=== PATIENT | female | born 1990 | race Caucasian/White ===

== ENCOUNTER 2017-09-14 15:35 | Emergency (ER) | payer OTHER ==
[~2017-09-14] VITALS: Ht 177.8 cm; Wt 69.5 kg
[2017-09-14 15:39] VITALS: TEMP 36.8; Ht 177.8 cm; Wt 69.5 kg
[2017-09-14] MEDS ORDERED: SODIUM CHLORIDE 0.9% 1000ML 1,000 ML IV STA (16:22)
[2017-09-14] MEDS ORDERED: ONDANSETRON INJ 2 MG/ML 2 ML VIAL IV STA (16:22)
[2017-09-14] MEDS ORDERED: GI COCKTAIL PO STA (16:22)
[2017-09-14] MEDS ORDERED: FAMOTIDINE 20MG/5ML IV PUSH IV STA (16:22)
[2017-09-14] MEDS ORDERED: ALUMINUM/MAGNESIUM SUSP 30 ML UDC ONE (16:54)
[2017-09-14] MEDS ORDERED: LIDOCAINE HCL 2% VISC SOLN 20 ML UDC ONE (16:54)
[2017-09-14 16:57] LABS: BASO % 0.2 %; BASO ABS # 0.01 K/uL (0-0.2); EOS % 3.6 %; EOS ABS # 0.22 K/uL (0-0.5); HEMATOCRIT 39.4 % (37-47); HEMOGLOBIN 13.4 g/dL (12.0-16.0); IG# 0.01 K/uL (0.00-0.02); LYMPH ABS # 1.54 K/uL (1.2-3.4); MEAN CELL VOLUME 85.5 fL (80-100); MEAN CORPUSCULAR HEMOGLOBIN 29.1 pg (25-34); MEAN PLATELET VOLUME 9.4 fL (7.4-10.4); MONO % 5.7 %; MONO ABS # 0.35 K/uL (0.11-0.59); NEUT % 65.3 %; NEUT ABS # 4.03 K/uL (1.4-6.5); PLATELET COUNT 236 K/uL (130-400); RED CELL DISTRIBUTION WIDTH CV 12.6 % (11.5-14.5); RED CELL DISTRIBUTION WIDTH SD 39.3 fL (36.4-46.3); WHITE BLOOD COUNT 6.16 K/uL (4.8-10.8)
[2017-09-14 17:19] LABS: ALBUMIN 4.2 gm/dl (3.4-5.0); ALKALINE PHOSPHATASE 61 U/L (45-117); ALT/SGPT 20 U/L (12-78); AST/SGOT 16 U/L (15-37); BLOOD UREA NITROGEN 9 mg/dl (7-18); CALCIUM 9.1 mg/dl (8.5-10.1); CARBON DIOXIDE 30 mmol/L (21-32); CREATININE 0.72 mg/dl (0.60-1.20); GLUCOSE 74 mg/dl (70-99); LIPASE 199 U/L (73-393); POTASSIUM 3.5 mmol/L (3.5-5.1); SODIUM 140 mmol/L (136-145)
[2017-09-14] MEDS ORDERED: MoRPHine SULFATE 4 MG/ML 1 ML CARP\\VIAL IV STA (18:17)
--- NOTE | 2017-09-14 18:34 | DIAGNOSTIC IMAGING REPORT ---
ABDOMEN 2VIEW W/PA CHEST RTN HISTORY: 27 years-old Female abd pain acute generalized abdominal pain and acute atypical chest pain COMPARISON: None available TECHNIQUE: PA view of the chest with erect and supine views of the abdomen FINDINGS: Cardiomediastinal and hilar silhouettes are within normal limits. There is no pneumothorax, pleural effusion, focal airspace consolidation or overt pulmonary edema. Bones of the chest appear grossly intact. No pneumatosis or pneumoperitoneum. Mild to moderate volume of formed stool about the right hemicolon. Cholecystectomy clips are noted. No urolith. Bowel gas pattern is nonobstructive. No fracture. IMPRESSION: Unremarkable acute abdominal series radiographs. The above report was generated using voice recognition software. It may contain grammatical, syntax or spelling errors. Electronically signed by: Ky Zamorano M.D. 09/14/2017 6:32 PM Dictated Date/Time: 09/14/2017 6:30 PM
--- NOTE | 2017-09-14 19:05 | EMERGENCY ROOM VISIT NOTE ---
History Report prepared by Scribe: Makenzie Melgar Under the Supervision of: Dr. Parker Neal D.O. First contact with patient: 15:42 Chief Complaint: ABDOMINAL PAIN Stated Complaint: BURNING IN STOMACH - CHEST BURNING - NAUSEA History of Present Illness The patient is a 27 year old female who presents to the Emergency Room with complaints of persistent abdominal pain for the past 2 weeks. She rates her discomfort as an 8/10 in severity and describes it as feeling like a "burning" pain. The pain does radiate up into her chest and shoulders. She has tried taking Antacids with no relief. She states she seems to experience the pain when she is hungry, but eating worsens the pain. She has been nauseous but has not vomited. She has experienced diarrhea. She has previously undergone a cholecystectomy but still has her appendix. Her LMP was 2 weeks ago and normal. Patient denies diabetes, hypertension, hyperlipidemia, CAD, history of sudden at a young age, and smoking. Patient denies swelling of calves, recent trips, history of immobilization or recent surgery, prior history of DVT, hemoptysis, history of malignancy, history of smoking, or control/ estrogen use. Pt denies headache, change in vision, fevers, chest pain, shortness of breath, vomiting, pain with urination, and melena. 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 A total of 10 systems reviewed and were otherwise negative. Past Medical & Surgical Surgical Problems: (1) History of cholecystectomy Social History Smoking Status: Never Smoker Alcohol Use: occasionally Drug Use: none Marital Status: Housing Status: lives with family Occupation Status: employed Current/Historical Medications Scheduled Famotidine (Pepcid), 20 MG PO DAILY Allergies Coded Allergies: No Known Allergies (Unverified , 09/14/17) Physical Exam Vital Signs Date Time Temp Pulse Resp B/P (MAP) Pulse Ox O2 Delivery O2 Flow Rate FiO2 09/14/17 19:33 62 18 118/72 99 09/14/17 18:44 59 16 116/74 100 Room Air 09/14/17 15:39 36.8 82 20 140/87 99 Room Air Physical Exam GENERAL: Sitting up in bed, alert, well appearing, well nourished, no distress, non-toxic EYE EXAM: normal conjunctiva. OROPHARYNX: no exudate, no erythema, lips, buccal mucosa, and tongue normal and mucous membranes are moist NECK: supple, no nuchal rigidity, no adenopathy, non-tender LUNGS: Clear to auscultation. Normal chest wall mechanics HEART: no murmurs, S1 normal and S2 normal ABDOMEN: abdomen soft, minimal tenderness in the epigastric region, normo- active bowel sounds, no masses, no rebound or guarding. BACK: Back is symmetrical on inspection and there is no deformity, no midline tenderness, no CVA tenderness. SKIN: no rashes and no bruising UPPER EXTREMITIES: upper extremities are grossly normal. LOWER EXTREMITIES: No pitting edema. NEURO EXAM: Normal sensorium, cranial nerves II-XII grossly intact, normal speech, no gross weakness of arms, no gross weakness of legs. Gross sensation intact. Medical Decision & Procedures ER Provider Diagnostic Interpretation: Radiology results as stated below per my review and the radiologist's interpretation: ABDOMEN 2VIEW W/PA CHEST RTN HISTORY: 27 years-old Female abd pain acute generalized abdominal pain and acute atypical chest pain COMPARISON: None available TECHNIQUE: PA view of the chest with erect and supine views of the abdomen FINDINGS: Cardiomediastinal and hilar silhouettes are within normal limits. There is no pneumothorax, pleural effusion, focal airspace consolidation or overt pulmonary edema. Bones of the chest appear grossly intact. No pneumatosis or pneumoperitoneum. Mild to moderate volume of formed stool about the right hemicolon. Cholecystectomy clips are noted. No urolith. Bowel gas pattern is nonobstructive. No fracture. IMPRESSION: Unremarkable acute abdominal series radiographs. The above report was generated using voice recognition software. It may contain grammatical, syntax or spelling errors. Electronically signed by: Ky Zamorano M.D. 09/14/2017 6:32 PM Laboratory Results 09/14/17 16:40 Red Blood Count 4.61, Mean Corpuscular Volume 85.5, Mean Corpuscular Hemoglobin 29.1, Mean Corpuscular Hemoglobin Concent 34.0, Mean Platelet Volume 9.4, Neutrophils (%) (Auto) 65.3, Lymphocytes (%) (Auto) 25.0, Monocytes (%) (Auto) 5.7, Eosinophils (%) (Auto) 3.6, Basophils (%) (Auto) 0.2, Neutrophils # (Auto) 4.03, Lymphocytes # (Auto) 1.54, Monocytes # (Auto) 0.35, Eosinophils # (Auto) 0.22, Basophils # (Auto) 0.01 09/14/17 16:40 Test 09/14/17 16:21 09/14/17 16:40 Urine Color YELLOW Urine Appearance CLEAR (CLEAR) Urine pH >= 9.0 (4.5-7.5) Urine Specific [place] 1.010 (1.000-1.030) Urine Protein NEG (NEG) Urine Glucose (UA) NEG (NEG) Urine Ketones NEG (NEG) Urine Occult Blood 1+ (NEG) Urine Nitrite NEG (NEG) Urine Bilirubin NEG (NEG) Urine Urobilinogen NEG (NEG) Urine Leukocyte Esterase NEG (NEG) Urine WBC (Auto) 0 /hpf (0-5) Urine RBC (Auto) 5-10 /hpf (0-4) Urine Hyaline Casts (Auto) 0 /lpf (0-5) Urine Epithelial Cells (Auto) 5-10 /lpf (0-5) Urine Bacteria (Auto) NEG (NEG) Urine Test NEG (NEG) White Blood Count 6.16 K/uL (4.8-10.8) Red Blood Count 4.61 M/uL (4.2-5.4) Hemoglobin 13.4 g/dL (12.0-16.0) Hematocrit 39.4 % (37-47) Mean Corpuscular Volume 85.5 fL (80-100) Mean Corpuscular Hemoglobin 29.1 pg (25-34) Mean Corpuscular Hemoglobin Concent 34.0 g/dl (32-36) Platelet Count 236 K/uL (130-400) Mean Platelet Volume 9.4 fL (7.4-10.4) Neutrophils (%) (Auto) 65.3 % Lymphocytes (%) (Auto) 25.0 % Monocytes (%) (Auto) 5.7 % Eosinophils (%) (Auto) 3.6 % Basophils (%) (Auto) 0.2 % Neutrophils # (Auto) 4.03 K/uL (1.4-6.5) Lymphocytes # (Auto) 1.54 K/uL (1.2-3.4) Monocytes # (Auto) 0.35 K/uL (0.11-0.59) Eosinophils # (Auto) 0.22 K/uL (0-0.5) Basophils # (Auto) 0.01 K/uL (0-0.2) RDW Standard Deviation 39.3 fL (36.4-46.3) RDW Coefficient of Variation 12.6 % (11.5-14.5) Immature Granulocyte % (Auto) 0.2 % Immature Granulocyte # (Auto) 0.01 K/uL (0.00-0.02) Anion Gap 6.0 mmol/L (3-11) Est Creatinine Clear Calc Drug Dose 128.0 ml/min Estimated GFR () 134.0 Estimated GFR (Non- 115.6 BUN/Creatinine Ratio 12.6 (10-20) Calcium Level 9.1 mg/dl (8.5-10.1) Total Bilirubin 0.3 mg/dl (0.2-1) Direct Bilirubin 0.1 mg/dl (0-0.2) Aspartate Amino Transf (AST/SGOT) 16 U/L (15-37) Alanine Aminotransferase (ALT/SGPT) 20 U/L (12-78) Alkaline Phosphatase 61 U/L (45-117) Troponin I < 0.015 ng/ml (0-0.045) Total Protein 8.0 gm/dl (6.4-8.2) Albumin 4.2 gm/dl (3.4-5.0) Lipase 199 U/L (73-393) Laboratory results per my review. Medications Administered Medications (Trade) Dose Ordered Sig/Mayi Route Start Time Stop Time Status Last Admin Dose Admin Sodium Chloride 1,000 ml @ 999 mls/hr Q1H1M STAT IV 09/14/17 16:22 09/14/17 17:22 DC 09/14/17 16:22 999 MLS/HR Miscellaneous Medication (Gi Cocktail) 24 ml NOW STAT PO 09/14/17 16:22 09/14/17 16:24 DC 09/14/17 16:22 24 ML Ondansetron HCl (Zofran Inj) 4 mg NOW STAT IV 09/14/17 16:22 09/14/17 16:24 DC 09/14/17 17:01 4 MG Famotidine (Pepcid 20mg Iv Push) 20 mg ONE STAT IV 09/14/17 16:22 09/14/17 16:24 DC 09/14/17 17:02 20 MG Al Hydroxide/Mg Hydroxide (Maalox Susp) 30 ml STK-MED ONCE .ROUTE 09/14/17 16:54 09/14/17 16:55 DC 09/14/17 17:02 30 ML Lidocaine HCl (Viscous Lidocaine 2% Soln) 20 ml STK-MED ONCE .ROUTE 09/14/17 16:54 09/14/17 16:55 DC 09/14/17 17:02 20 ML Morphine Sulfate (MoRPHine SULFATE INJ) 4 mg NOW STAT IV 09/14/17 18:17 09/14/17 18:18 DC 09/14/17 18:28 4 MG ECG Per My Interpretation Indication: abdominal pain Rate (beats per minute): 62 Rhythm: sinus rhythm Findings: no ectopy, other (normal axis) ED Course ED COURSE: Vital signs were reviewed and showed normal vital signs The patients medical record was reviewed The above diagnostic studies were performed and reviewed. ED treatments and interventions as stated above. 1547: The patient was evaluated in room B4. A complete history and physical examination was performed. 1622: Pepcid 20 mg IV, Zofran 4 mg IV, GI Cocktail 24 ml PO, NSS 1000 ml @ 999 mls/hr IV. 1654: Lidocaine HCl 20 ml PO, Maalox Susp 30 ml PO. 1815: I reevaluated the patient. She is still having pain. I will order more medication. 1817: Morphine Sulfate 4 mg IV. 1900: Upon reevaluation, the patient is feeling better and ready to go home. I discussed my findings with the patient and she understands and agrees with the treatment plan. Based on the patients age, coexisting illnesses, exam and lab findings the decision to treat as an outpatient was made. The patient remained stable while under my care. The patient appeared well at the time of discharge. Medical Decision Differential diagnoses includes but is not limited to gastritis, peptic ulcer disease, GERD, gallbladder disease, pancreatitis, small bowel obstruction, acute coronary syndrome, pericarditis, ischemic bowel, irritable bowel disease, irritable bowel syndrome, appendicitis, diverticulitis, malignancy, hernia, urinary tract infection, torsion, perforation, trauma, infectious. Patient is a 27-year-old female that presents the for burning in the epigastric region radiating up into her chest which is been present for the past 2 weeks. It is worse with eating and it is worse when she does not eat anything. Previous cholecystectomy. Last menstrual period was 2 weeks ago. Abdominal exam is benign. CBC along with BMP, LFTs, bilirubin and lipase was negative. UA was negative. was negative. Troponin was negative with pain greater than 8 hours. EKG was unremarkable. She was given a GI cocktail without significant relief. She is given IV morphine and fluids. She did feel significantly better. Obstructive series was unremarkable. She was discharged to follow-up with PCP as an outpatient. I do favor that this likely gastritis/ reflux. Discussed with Pt concerning signs and symptoms to watch out for. Pt was instructed to follow up with their PCP and discussed with the patient their option to return to the ED at anytime for persistent or worsening symptoms. The appropriate anticipatory guidance and out-patient management, including indications for return to the emergency department, were explained at length to the patient and understood. Medication Reconcilliation Current Medication List: was personally reviewed by me Blood Pressure Screening Patient's blood pressure: Normal blood pressure Blood pressure disposition: Elevated BP felt to be situational, Did not require urgent referral Impression Primary Impression: Epigastric abdominal pain Scribe Attestation The scribe's documentation has been prepared under my direction and personally reviewed by me in its entirety. I confirm that the note above accurately reflects all work, treatment, procedures, and medical decision making performed by me. Departure Information Dispostion Home / Self-Care Prescriptions Famotidine (Pepcid) 20 Mg Tab 20 MG PO DAILY for 30 Days, #30 TAB Prov: Parker Neal, DO 09/14/17 Patient Instructions Abdominal Pain - [facility], My [facility] Additional Instructions Please follow up with your primary care doctor with in the next 24 hours. Any worsening of your symptoms, please return to the ED immediately. This includes any fevers greater than 100.4, worsening pain, chest pain, shortness breath, persistent nausea, vomiting, unable to eat or drink, or any other concerning signs or symptoms from your standpoint.
[2017-09-14] MEDS ORDERED: FAMO20TA11 PO (19:06)
[2017-09-14 19:33] VITALS: BP 118/72; PULSE 62; O2SAT 99
== END 2017-09-14 19:30 | disposition home or self-care (01) ==
LOC: C.EDB 15:37
DX: R10.13 Epigastric pain (principal); Z90.49 Acquired absence of other specified parts of digestive tract; Z79.899 Other long term (current) drug therapy